=== PATIENT | male | born 1965 | race African-American/Black ===

== ENCOUNTER 2017-10-09 16:10 | Inpatient (IN) | payer OTHER ==
[2017-10-09 17:15] VITALS: BMI 35.5
--- NOTE | 2017-10-09 19:52 | HP ---
CIWA Score - CIWA Score Nausea/Vomitin-No Nausea/No Vomiting Muscle Tremors: 2 Anxiety: 3 Agitation: 2 Paroxysmal Sweats: No Perspiration Orientation: 1-Uncertain about Date (no distress) Tacttile Disturbances: 1-Very Mild Itch/Numbness Auditory Disturbances: 0-None Visual Disturbances: 0-None Headache: 0-None Present CIWA-Ar Total Score: 9 Admission ROS BHS - HPI Chief Complaint: alcohol withdrawal symptoms Allergies/Adverse Reactions: Allergies Allergy/AdvReac Type Severity Reaction Status Date / Time No Known Allergies Allergy Verified 10/09/17 18:02 History of Present Illness: 51 yo male with hx of alcohol and nicotine dependence is here seeking detox. As per patient he was evaluated last night and discharged today from [facility] for alcohol intoxication. Last April 2017, detox unable to recall the name of the last facility. PHMX: HTN, schizophrenia, anxiety, depression. Denies suicidal / homicidal. Denies hx of suicide attempts. Reports auditory and visual hallucinations when consuming a lot of alcohol. Denies hx of seizures or blackouts. Longest period of sobriety 4 months. Exam Limitations: No Limitations - Ebola screening Have you traveled outside of the country in the last 21 days: No Have you had contact with anyone from an Ebola affected area: No Have you been sick,other than usual withdrawal symptoms: No Do you have a fever: No - Review of Systems Constitutional: Chills, Changes in sleep EENT: reports: No Symptoms Reported Respiratory: reports: No Symptoms reported Cardiac: reports: No Symptoms Reported GI: reports: Poor Fluid Intake, Indigestion : reports: No Symptoms Reported Musculoskeletal: reports: No Symptoms Reported Integumentary: reports: No Symptoms Reported Neuro: reports: No Symptoms reported Endocrine: reports: Increased Thirst Hematology: reports: No Symptoms Reported Psychiatric: reports: Orientated x3, Depressed Other Systems: Reviewed and Negative Patient History - Patient Medical History Hx Anemia: No Hx Asthma: No Hx Chronic Obstructive Pulmonary Disease (COPD): No Hx Cancer: No Hx Cardiac Disorders: No Hx Congestive Heart Failure: No Hx Hypertension: Yes Hx Hypercholesterolemia: No Hx Pacemaker: No HX Cerebrovascular Accident: No Hx Seizures: No Hx Dementia: No Hx Diabetes: Yes Hx Gastrointestinal Disorders: No Hx Liver Disease: No Hx Genitourinary Disorders: No Hx Sexually Transmitted Disorders: No Hx Renal Disease (ESRD): No Hx Thyroid Disease: No Hx Human Immunodeficiency Virus (HIV): No (last tested April 2017) Hx Hepatitis C: No Hx Depression: Yes Hx Suicide Attempt: No Hx Bipolar Disorder: No Hx Schizophrenia: Yes - Patient Surgical History Past Surgical History: No Hx Neurologic Surgery: No Hx Cataract Extraction: No Hx Cardiac Surgery: No Hx Lung Surgery: No Hx Breast Surgery: No Hx Breast Biopsy: No Hx Abdominal Surgery: No Hx Appendectomy: No Hx Cholecystectomy: No Hx Genitourinary Surgery: No Hx Section: No Hx Orthopedic Surgery: No Anesthesia Reaction: No - PPD History Previous Implant?: No Documented Results: Positive w/o proof Implanted On Prior R Admission?: No PPD to be Administered?: No - Smoking Cessation Smoking history: Current every day smoker Aproximately how many cigarettes per day: 40 Hx Chewing Tobacco Use: No Initiated information on smoking cessation: Yes 'Breaking Loose' booklet given: 10/09/17 - Substance & Tx. History Hx Alcohol Use: Yes Hx Substance Use: Yes Substance Use Type: Alcohol Hx Substance Use Treatment: Yes (Last April 2017, detox unable to recall the name of the last facility) - Substances Abused Alcohol Route: Oral Frequency: Daily Amount used: 1 PINT RUM Age of first use: 16 Date of Last Use: 10/09/17 Family Disease History - Family Disease History Family Disease History: Heart Disease: Mother (HTN), Other: Father (ALCOHOLIC) Admission Physical Exam BHS - Vital Signs Vital Signs: Vital Signs - 24 hr 10/09/17 17:13 Temperature 98.7 F Pulse Rate 116 H Respiratory 18 Rate Blood Pressure 140/86 - Physical General Appearance: Yes: Disheveled, Sweating, Anxious HEENTM: Yes: EOMI, Hearing grossly Normal, Normal ENT Inspection, Normocephalic , Normal Voice, ROXIE, Pharynx Normal, Tm's normal Respiratory: Yes: Chest Non-Tender, Lungs Clear, Normal Breath Sounds, No Respiratory Distress, No Accessory Muscle Use Neck: Yes: Within Normal Limits Breast: Yes: Breast Exam Deferred Cardiology: Yes: Regular Rhythm, Regular Rate Abdominal: Yes: Normal Bowel Sounds, Non Tender, Flat, Soft Genitourinary: Yes: Within Normal Limits Back: Yes: Normal Inspection Musculoskeletal: Yes: full range of Motion, Gait Steady, Pelvis Stable Extremities: Yes: Normal Capillary Refill, Normal Inspection, Normal Range of Motion, Non-Tender Neurological: Yes: prepper II-XII NML intact, Fully Oriented, Alert, Motor Strength 5/5, Depressed Affect Integumentary: Yes: Normal Color, Warm, Diaphoresis Lymphatic: Yes: Within Normal Limits - Diagnostic (1) Alcohol dependence with withdrawal Current Visit: Yes Status: Acute Qualifiers: Complication of substance-induced condition: uncomplicated Qualified Code(s ): F10.230 - Alcohol dependence with withdrawal, uncomplicated (2) Psychiatric disorder Current Visit: Yes Status: Suspected (3) HTN (hypertension) Current Visit: Yes Status: Chronic (4) Nicotine dependence Current Visit: Yes Status: Chronic Qualifiers: Nicotine product type: cigarettes Substance use status: in withdrawal Qualified Code(s): F17.213 - Nicotine dependence, cigarettes, with withdrawal Cleared for Admission [facility] - Detox or Rehab [facility] Level of Care: Medically Supervised Detox Regimen/Protocol: Librium [facility] Breath Alcohol Content Breath Alcohol Content: 0 Urine Drug Screen - Results Drug Screen Negative: No Urine Drug Screen Results: BZO-Benzodiazepines
[2017-10-09] MEDS ORDERED: MAGNESIUM CITRATE 300 ML BOTTLE PO PRN (20:02)
[2017-10-09] MEDS ORDERED: MAGNESIUM HYDROX 2400MG/30ML ORAL SUSPENSION 30 ML CUP PO PRN (20:02)
[2017-10-09] MEDS ORDERED: chlordiazePOXIDE HCL 25 MG CAPSULE PO PRN (20:02)
[2017-10-09] MEDS ORDERED: MENTHOL/PHENOL 1 EACH UD MM PRN (20:02)
[2017-10-09] MEDS ORDERED: MAG HYDROX/AL HYDROX/SIMETH 30 ML UNIT-DOSE CUP PO PRN (20:02)
[2017-10-09] MEDS ORDERED: guaiFENesin/D-METHORPHAN HB 10 ML UNIT-DOSE CUPS PO PRN (20:02)
[2017-10-09] MEDS ORDERED: IBUPROFEN 400 MG TABLET (FP) PO PRN (20:02)
[2017-10-09] MEDS ORDERED: ACETAMINOPHEN 325 MG TABLET (FP) PO PRN (20:02)
[2017-10-09] MEDS ORDERED: P-EPHED 60MG/TRIPROLIDI 2.5MG TABLET PO PRN (20:02)
[2017-10-09] MEDS ORDERED: LOPERAMIDE HCL 2 MG CAPSULE PO PRN (20:02)
[2017-10-09] MEDS ORDERED: NICOTINE POLACRILEX 2 MG GUM BC PRN (20:13)
--- NOTE | 2017-10-09 21:51 | PN ---
BHS Progress Note Note: abnormal EKG: SINUS TACHY BPM 118 Continue detox withdrawal increase fluids repeat EKG in AM
[2017-10-09] MEDS: THIAMINE HCL 100 MG TABLET (FP) PO SCH (21:56)
[2017-10-09] MEDS: chlordiazePOXIDE HCL 25 MG CAPSULE PO SCH (22:00)
[2017-10-09 23:37] LABS: URINE APPEARANCE TURBID; URINE BILIRUBIN NEGATIVE (<2.0 mg/dL); URINE COLOR YELLOW; URINE GLUCOSE (UA) NEGATIVE (NEGATIVE); URINE KETONE NEGATIVE (NEGATIVE); URINE LEUK ESTERASE NEGATIVE (NEGATIVE); URINE NITRITE NEGATIVE (NEGATIVE); URINE UROBILINOGEN 4.0 E.U/dl mg/dL (0.2-1.0)
[2017-10-09 23:38] LABS: URINE PROTEIN 1+ (NEGATIVE)
[2017-10-09 23:47] LABS: URINE MUCUS MODERATE
[2017-10-10] MEDS: chlordiazePOXIDE HCL 25 MG CAPSULE PO SCH ×4 (05:37→22:32)
[2017-10-10] MEDS: PRENATAL VITAMINS W/ FOLIC ACID TABLET (FP) PO SCH (10:05)
[2017-10-10] MEDS: amLODIPine BESYLATE 10 MG TABLET (FP) PO SCH (10:05)
[2017-10-10] MEDS: NICOTINE 14 MG/24 HOURS TOPICAL PATCH TD SCH (10:06)
[2017-10-10 10:10] LABS: HEMATOCRIT 38.4 % (35.4-49); HEMOGLOBIN 12.8 GM/dL (11.7-16.9); MCH 26.6 pg (25.7-33.7); MCHC 33.2 g/dl (32.0-35.9); MEAN CELL VOLUME 80.1 fl (80-96); MEAN PLT VOLUME 9.4 fl (7.5-11.1); PLATELET COUNT 162 K/MM3 (134-434); RDW 16.1 % (11.9-15.9); WHITE BLOOD COUNT 6.4 K/mm3 (4.0-10.0)
[2017-10-10 10:29] LABS: CHLORIDE 104 mmol/L (98-107); SODIUM 143 mmol/L (136-145)
[2017-10-10 10:47] LABS: ALBUMIN 3.5 g/dl (3.4-5.0); ALK PHOS 94 U/L (45-117); ANION GAP 9 (8-16); BILIRUBIN,TOTAL 0.8 mg/dL (0.2-1.0); BLOOD UREA NITROGEN 15 mg/dL (7-18); CALCIUM 8.5 mg/dL (8.5-10.1); CO2 30 mmol/L (21-32); GLUCOSE,RANDOM 93 mg/dL (74-106); SGOT/AST 11 U/L (15-37); SGPT/ALT 23 U/L (12-78); TOT PROT 6.9 g/dl (6.4-8.2)
[2017-10-10 10:55] LABS: POTASSIUM 2.9 mmol/L (3.5-5.1)
--- NOTE | 2017-10-10 11:03 | CONSULT ---
[facility] Psychiatric Consult - Data Date of interview: 10/10/17 Admission source: [facility] Identifying data: Patient is a 51 year old single male, without kids, domiciled , unemployed, and supported by [facility]. This is one of multiple admissions for patient. Pt. admitted to for alcohol dependence. Substance Abuse History: Smoking Cessation. Smoking history: Current every day smoker. Aproximately how many cigarettes per day: 40. Hx Chewing Tobacco Use: No. Initiated information on smoking cessation: Yes. 'Breaking Loose' booklet given: 10/09/17. - Substance & Tx. History. Hx Alcohol Use: Yes. Hx Substance Use: Yes. Substance Use Type: Alcohol. Hx Substance Use Treatment: Yes (Last April 2017, detox unable to recall the name of the last facility). - Substances Abused. Alcohol. Route: Oral. Frequency: Daily. Amount used: 1 PINT RUM. Age of first use: 16. Date of Last Use: 10/09/17 Medical History: hypertension, diabetes Psychiatric History: Patient was diagnosed with Schizophrenia in 2005 at [facility] due to onset of auditory hallucinations. Patient reports multiple psychiatric hospitalizations, most recently last week at [facility] for auditory hallucinations. OPD is provided at [facility] outpatient clinic. Pt. currently receives Invega sustenna 234mg Monthly. States he received his montly injection on September 16 and is due for another injection on October 16. Patient denies h/o suicide attempt. Pt. currently denies suicidal and homicidal ideation. Physical/Sexual Abuse/Trauma History: Denies. Mental Status Exam - Mental Status Exam Alert and Oriented to: Time, Place, Person Cognitive Function: Good Patient Appearance: Well Groomed Mood: Euthymic Affect: Flat Patient Behavior: Cooperative Speech Pattern: Appropriate Voice Loudness: Normal Thought Process: Intact, Goal Oriented Thought Disorder: Not Present Hallucinations: Denies Suicidal Ideation: Denies Homicidal Ideation: Denies Insight/Judgement: Poor Sleep: Poorly Appetite: Fair Muscle strength/Tone: Normal Gait/Station: Normal Psychiatric Findings - Problem List ([place] 1, 2,3) (1) Alcohol dependence with withdrawal Current Visit: Yes Status: Acute Qualifiers: Complication of substance-induced condition: uncomplicated Qualified Code(s ): F10.230 - Alcohol dependence with withdrawal, uncomplicated (2) HTN (hypertension) Current Visit: Yes Status: Chronic (3) Nicotine dependence Current Visit: Yes Status: Chronic Qualifiers: Nicotine product type: cigarettes Substance use status: in withdrawal Qualified Code(s): F17.213 - Nicotine dependence, cigarettes, with withdrawal (4) Schizophrenia Current Visit: Yes Status: Chronic (5) Insomnia Current Visit: Yes Status: Acute - Initial Treatment Plan Initial Treatment Plan: Psychoeducation provided. Detoxification in progress. Pt. encouraged to accept melatonin 5mg for insomnia. Pt. is on Invega Sustenna 234mg IM. As per patient, most recent Invega Sustenna was received on September 16. Next Invega Sustenna injection is due on October 16.
[2017-10-10] MEDS ORDERED: POTASSIUM CHLORIDE TABS 20 MEQ TABLET.ER (FP) PO ONE (11:55)
--- NOTE | 2017-10-10 11:57 | PN ---
[facility] CIWA - CIWA Score Nausea/Vomitin-No Nausea/No Vomiting Muscle Tremors: 2 Anxiety: 4-Mod. Anxious/Guarded Agitation: 0-Normal Activity Paroxysmal Sweats: 3 Orientation: 0-Oriented Tacttile Disturbances: 2-Mild Itch/Numbness/Burn Auditory Disturbances: 0-None Visual Disturbances: 2-Mild Sensitivity Headache: 0-None Present CIWA-Ar Total Score: 13 S Progress Note (SOAP) Subjective: Sweating, Anxious, Tremors, Fatigue. Objective: PATIENT A & O X 3. NO ACUTE DISTRESS. ASIDE FROM HTN, PATIENT DENIES ANY KNOWN HISTORY OF CARDIOVASCULAR DISEASE OR OF PREVIOUS ECG ABNORMALITY. 10/10/17 11:58 Vital Signs Temperature 97.4 F L 10/10/17 09:14 Pulse Rate 98 H 10/10/17 09:14 Respiratory Rate 20 10/10/17 09:14 Blood Pressure 124/76 10/10/17 09:14 O2 Sat by Pulse Oximetry (%) Laboratory Tests 10/09/17 10/10/17 10/10/17 Unknown 07:00 07:00 WBC 6.4 RBC 4.80 Hgb 12.8 Hct 38.4 D MCV 80.1 MCH 26.6 MCHC 33.2 RDW 16.1 H Plt Count 162 MPV 9.4 Sodium 143 Potassium 2.9 L* D Chloride 104 Carbon Dioxide 30 Anion Gap 9 BUN 15 Creatinine 1.0 Creat Clearance w eGFR > 60 Random Glucose 93 Calcium 8.5 Total Bilirubin 0.8 AST 11 L D ALT 23 Alkaline Phosphatase 94 Total Protein 6.9 Albumin 3.5 Urine Color Yellow Urine Appearance Turbid Urine pH 5.0 Ur Specific [place] 1.028 Urine Protein 1+ H Urine Glucose (UA) Negative Urine Ketones Negative Urine Blood Negative Urine Nitrite Negative Urine Bilirubin Negative Urine Urobilinogen 4.0 e.u/dl Ur Leukocyte Esterase Negative Urine WBC (Auto) 3 Urine RBC (Auto) 8 Urine Mucus Moderate LABS NOTED. 10/10/17 11:59 Assessment: 10/10/17 11:59 WITHDRAWAL SYMPTOMS. HYPOKALEMIA. 10/10/17 11:59 Plan: CONTINUE DETOX. K-DUR, 20 MEQ PO BID. REPEAT K LEVEL ON 10/12/2017. INCREASE DAILY PO FLUID INTAKE.
--- NOTE | 2017-10-10 12:06 | PN ---
S Progress Note Note: Positive History of Diabetes noted in patient's Admission History and Physical document. However, when asked, patient denies any known history of Diabetes. Armani Riggs NP
--- NOTE | 2017-10-10 12:11 | EKG ---
Test Reason : Blood Pressure : / mmHG Vent. Rate : 118 BPM Atrial Rate : 118 BPM P-R Int : 154 ms QRS Dur : 076 ms QT Int : 310 ms P-R-T Axes : 065 -02 100 degrees QTc Int : 434 ms SINUS TACHYCARDIA WITH PREMATURE ATRIAL COMPLEXES POSSIBLE LEFT ATRIAL ENLARGEMENT LEFT VENTRICULAR HYPERTROPHY T WAVE ABNORMALITY, CONSIDER LATERAL ISCHEMIA ABNORMAL ECG NO PREVIOUS ECGS AVAILABLE Confirmed by MADAN BETANCOURT MD ([id number]) on 10/10/2017 12:10:58 PM Referred By: Confirmed By:MADAN BETANCOURT MD
--- NOTE | 2017-10-10 12:11 | EKG ---
Test Reason : Blood Pressure : / mmHG Vent. Rate : 081 BPM Atrial Rate : 081 BPM P-R Int : 162 ms QRS Dur : 088 ms QT Int : 430 ms P-R-T Axes : 063 -09 -08 degrees QTc Int : 499 ms NORMAL SINUS RHYTHM MINIMAL VOLTAGE CRITERIA FOR LVH, MAY BE NORMAL VARIANT NONSPECIFIC T WAVE ABNORMALITY PROLONGED QT ABNORMAL ECG WHEN COMPARED WITH ECG OF 09-OCT-2017 21:21, PREMATURE ATRIAL COMPLEXES ARE NO LONGER PRESENT NONSPECIFIC T WAVE ABNORMALITY NOW EVIDENT IN INFERIOR LEADS NONSPECIFIC T WAVE ABNORMALITY HAS REPLACED INVERTED T WAVES IN LATERAL LEADS Confirmed by MADAN BETANCOURT MD ([id number]) on 10/10/2017 12:11:28 PM Referred By: Confirmed By:MADAN BETANCOURT MD
[2017-10-10] MEDS: POTASSIUM CHLORIDE TABS 20 MEQ TABLET.ER (FP) PO SCH (17:13)
[2017-10-10] MEDS: THIAMINE HCL 100 MG TABLET (FP) PO SCH (22:33)
[2017-10-11] MEDS: chlordiazePOXIDE HCL 25 MG CAPSULE PO SCH ×3 (05:48→17:28)
[2017-10-11] MEDS: POTASSIUM CHLORIDE TABS 20 MEQ TABLET.ER (FP) PO SCH ×2 (10:08→17:28)
[2017-10-11] MEDS: PRENATAL VITAMINS W/ FOLIC ACID TABLET (FP) PO SCH (10:08)
[2017-10-11] MEDS: NICOTINE 14 MG/24 HOURS TOPICAL PATCH TD SCH (10:08)
[2017-10-11] MEDS: amLODIPine BESYLATE 10 MG TABLET (FP) PO SCH (10:08)
--- NOTE | 2017-10-11 12:09 | PN ---
[facility] CIWA - CIWA Score Nausea/Vomitin-No Nausea/No Vomiting Muscle Tremors: None Anxiety: 4-Mod. Anxious/Guarded Agitation: 0-Normal Activity Paroxysmal Sweats: 2 Orientation: 2-Disoriented Date<2 days Tacttile Disturbances: 2-Mild Itch/Numbness/Burn Auditory Disturbances: 0-None Visual Disturbances: 2-Mild Sensitivity Headache: 0-None Present CIWA-Ar Total Score: 12 S Progress Note (SOAP) Subjective: Interrupted Sleep, Fatigue, Constipation, Sweating. Objective: PATIENT A & O X 2 (UNCERTAIN ABOUT CURRENT DAY / DATE). NO ACUTE DISTRESS. 10/11/17 12:06 Vital Signs Temperature 97.3 F L 10/11/17 09:34 Pulse Rate 109 H 10/11/17 09:34 Respiratory Rate 18 10/11/17 09:34 Blood Pressure 122/72 10/11/17 09:34 O2 Sat by Pulse Oximetry (%) Laboratory Tests 10/09/17 10/10/17 10/10/17 Unknown 07:00 07:00 WBC 6.4 RBC 4.80 Hgb 12.8 Hct 38.4 D MCV 80.1 MCH 26.6 MCHC 33.2 RDW 16.1 H Plt Count 162 MPV 9.4 Sodium 143 Potassium 2.9 L* D Chloride 104 Carbon Dioxide 30 Anion Gap 9 BUN 15 Creatinine 1.0 Creat Clearance w eGFR > 60 Random Glucose 93 Calcium 8.5 Total Bilirubin 0.8 AST 11 L D ALT 23 Alkaline Phosphatase 94 Total Protein 6.9 Albumin 3.5 Urine Color Yellow Urine Appearance Turbid Urine pH 5.0 Ur Specific [place] 1.028 Urine Protein 1+ H Urine Glucose (UA) Negative Urine Ketones Negative Urine Blood Negative Urine Nitrite Negative Urine Bilirubin Negative Urine Urobilinogen 4.0 e.u/dl Ur Leukocyte Esterase Negative Urine WBC (Auto) 3 Urine RBC (Auto) 8 Urine Mucus Moderate RPR Titer 10/10/17 07:00 WBC RBC Hgb Hct MCV MCH MCHC RDW Plt Count MPV Sodium Potassium Chloride Carbon Dioxide Anion Gap BUN Creatinine Creat Clearance w eGFR Random Glucose Calcium Total Bilirubin AST ALT Alkaline Phosphatase Total Protein Albumin Urine Color Urine Appearance Urine pH Ur Specific [place] Urine Protein Urine Glucose (UA) Urine Ketones Urine Blood Urine Nitrite Urine Bilirubin Urine Urobilinogen Ur Leukocyte Esterase Urine WBC (Auto) Urine RBC (Auto) Urine Mucus RPR Titer Nonreactive LABS NOTED. Assessment: 10/11/17 12:08 WITHDRAWAL SYMPTOMS. Plan: CONTINUE DETOX. CONTINUE K-DUR BID. REPEAT K LEVEL TOMORROW AM. INCREASE DAILY PO FLUID INTAKE. PRN MOM FOR CONSTIPATION.
[2017-10-11] MEDS: chlordiazePOXIDE 5 MG CAPSULE PO SCH (22:08)
[2017-10-11] MEDS: MELATONIN 5 MG TABLETS PO PRN (22:08)
[2017-10-11] MEDS: THIAMINE HCL 100 MG TABLET (FP) PO SCH (22:08)
[2017-10-12] MEDS: chlordiazePOXIDE 5 MG CAPSULE PO SCH ×3 (05:02→17:21)
[2017-10-12] MEDS: PRENATAL VITAMINS W/ FOLIC ACID TABLET (FP) PO SCH (10:16)
[2017-10-12] MEDS: amLODIPine BESYLATE 10 MG TABLET (FP) PO SCH (10:16)
[2017-10-12] MEDS: POTASSIUM CHLORIDE TABS 20 MEQ TABLET.ER (FP) PO SCH ×2 (10:16→18:33)
[2017-10-12] MEDS: NICOTINE 14 MG/24 HOURS TOPICAL PATCH TD SCH (10:17)
--- NOTE | 2017-10-12 18:15 | PN ---
BHS Progress Note (SOAP) Subjective: Constipation, Anxious. Objective: PATIENT A & O X 2 (UNCERTAIN ABOUT CURRENT DAY / DATE). PATIENT OBSERVED AMBULATING ON UNIT. NO ACUTE DISTRESS. 10/12/17 18:14 Vital Signs Temperature 97.3 F L 10/12/17 13:48 Pulse Rate 68 10/12/17 13:48 Respiratory Rate 10/12/17 13:48 Blood Pressure 134/79 10/12/17 13:48 O2 Sat by Pulse Oximetry (%) Laboratory Tests 10/09/17 10/10/17 10/10/17 Unknown 07:00 07:00 WBC 6.4 RBC 4.80 Hgb 12.8 Hct 38.4 D MCV 80.1 MCH 26.6 MCHC 33.2 RDW 16.1 H Plt Count 162 MPV 9.4 Sodium 143 Potassium 2.9 L* D Chloride 104 Carbon Dioxide 30 Anion Gap 9 BUN 15 Creatinine 1.0 Creat Clearance w eGFR > 60 POC Glucometer Random Glucose 93 Calcium 8.5 Total Bilirubin 0.8 AST 11 L D ALT 23 Alkaline Phosphatase 94 Total Protein 6.9 Albumin 3.5 Urine Color Yellow Urine Appearance Turbid Urine pH 5.0 Ur Specific [place] 1.028 Urine Protein 1+ H Urine Glucose (UA) Negative Urine Ketones Negative Urine Blood Negative Urine Nitrite Negative Urine Bilirubin Negative Urine Urobilinogen 4.0 e.u/dl Ur Leukocyte Esterase Negative Urine WBC (Auto) 3 Urine RBC (Auto) 8 Urine Mucus Moderate RPR Titer 10/10/17 10/11/17 10/12/17 07:00 16:28 07:50 WBC RBC Hgb Hct MCV MCH MCHC RDW Plt Count MPV Sodium Potassium 3.7 D Chloride Carbon Dioxide Anion Gap BUN Creatinine Creat Clearance w eGFR POC Glucometer 110 Random Glucose Calcium Total Bilirubin AST ALT Alkaline Phosphatase Total Protein Albumin Urine Color Urine Appearance Urine pH Ur Specific [place] Urine Protein Urine Glucose (UA) Urine Ketones Urine Blood Urine Nitrite Urine Bilirubin Urine Urobilinogen Ur Leukocyte Esterase Urine WBC (Auto) Urine RBC (Auto) Urine Mucus RPR Titer Nonreactive LABS NOTED. Assessment: 10/12/17 18:15 WITHDRAWAL SYMPTOMS. Plan: CONTINUE DETOX. PATIENT SCHEDULED FOR D/C TOMORROW.
[2017-10-12] MEDS: THIAMINE HCL 100 MG TABLET (FP) PO SCH (22:04)
[2017-10-12] MEDS: chlordiazePOXIDE HCL 10 MG CAPSULE PO SCH (22:04)
[2017-10-12] MEDS: MELATONIN 5 MG TABLETS PO PRN (22:05)
[2017-10-13] MEDS: chlordiazePOXIDE HCL 10 MG CAPSULE PO SCH (05:14)
[2017-10-13 06:21] VITALS: BP 140/93; PULSE 79; TEMP 98.6
--- NOTE | 2017-10-13 14:10 | DS ---
[facility] Detox Discharge Summary Admission Date: 10/09/17 Discharge Date: 10/13/17 - History Present History: Alcohol Dependence Additional Comments: Patient medically stable. No suicidal / homicidal ideation. Patient to follow up with PMD upon discharge. Pertinent Past History: DMII HTN - Physical Exam Results Vital Signs: Vital Signs Temperature 98.6 F 10/13/17 06:20 Pulse Rate 79 10/13/17 06:20 Respiratory Rate 18 10/13/17 06:20 Blood Pressure 140/93 10/13/17 06:20 O2 Sat by Pulse Oximetry (%) Pertinent Admission Physical Exam Findings: Vital Signs Temperature 98.6 F 10/13/17 06:20 Pulse Rate 79 10/13/17 06:20 Respiratory Rate 18 10/13/17 06:20 Blood Pressure 140/93 10/13/17 06:20 O2 Sat by Pulse Oximetry (%) Laboratory Last Values WBC 6.4 K/mm3 (4.0-10.0) 10/10/17 07:00 RBC 4.80 M/mm3 (4.00-5.60) 10/10/17 07:00 Hgb 12.8 GM/dL (11.7-16.9) 10/10/17 07:00 Hct 38.4 % (35.4-49) D 10/10/17 07:00 MCV 80.1 fl (80-96) 10/10/17 07:00 MCH 26.6 pg (25.7-33.7) 10/10/17 07:00 MCHC 33.2 g/dl (32.0-35.9) 10/10/17 07:00 RDW 16.1 % (11.9-15.9) H 10/10/17 07:00 Plt Count 162 K/MM3 (134-434) 10/10/17 07:00 MPV 9.4 fl (7.5-11.1) 10/10/17 07:00 Sodium 143 mmol/L (136-145) 10/10/17 07:00 Potassium 3.7 mmol/L (3.5-5.1) D 10/12/17 07:50 Chloride 104 mmol/L (98-107) 10/10/17 07:00 Carbon Dioxide 30 mmol/L (21-32) 10/10/17 07:00 Anion Gap 9 (8-16) 10/10/17 07:00 BUN 15 mg/dL (7-18) 10/10/17 07:00 Creatinine 1.0 mg/dL (0.7-1.3) 10/10/17 07:00 Creat Clearance w eGFR > 60 (>60) 10/10/17 07:00 POC Glucometer 110 UNITS (80-120) 10/11/17 16:28 Random Glucose 93 mg/dL (74-106) 10/10/17 07:00 Calcium 8.5 mg/dL (8.5-10.1) 10/10/17 07:00 Total Bilirubin 0.8 mg/dL (0.2-1.0) 10/10/17 07:00 AST 11 U/L (15-37) L D 10/10/17 07:00 ALT 23 U/L (12-78) 10/10/17 07:00 Alkaline Phosphatase 94 U/L (45-117) 10/10/17 07:00 Total Protein 6.9 g/dl (6.4-8.2) 10/10/17 07:00 Albumin 3.5 g/dl (3.4-5.0) 10/10/17 07:00 Urine Color Yellow 10/09/17 Unknown Urine Appearance Turbid 10/09/17 Unknown Urine pH 5.0 (5.0-8.0) 10/09/17 Unknown Ur Specific [place] 1.028 (1.001-1.035) 10/09/17 Unknown Urine Protein 1+ (NEGATIVE) H 10/09/17 Unknown Urine Glucose (UA) Negative (NEGATIVE) 10/09/17 Unknown Urine Ketones Negative (NEGATIVE) 10/09/17 Unknown Urine Blood Negative (NEGATIVE) 10/09/17 Unknown Urine Nitrite Negative (NEGATIVE) 10/09/17 Unknown Urine Bilirubin Negative (<2.0 mg/dL) 10/09/17 Unknown Urine Urobilinogen 4.0 e.u/dl mg/dL (0.2-1.0) 10/09/17 Unknown Ur Leukocyte Esterase Negative (NEGATIVE) 10/09/17 Unknown Urine WBC (Auto) 3 /hpf (3-5) 10/09/17 Unknown Urine RBC (Auto) 8 /hpf (0-3) 10/09/17 Unknown Urine Mucus Moderate 07/11/18 Unknown RPR Titer Nonreactive (NONREACTIVE) 10/10/17 07:00 - Treatment Hospital Course: Detox Protocol Followed, Detoxed Safely, Responded well, Discharged Condition Good, Rehab Referral Accepted Patient has Accepted a Rehab Referral to: [facility] - Medication Discharge Medications: Ambulatory Orders Paliperidone Palmitate [Invega Sustenna] 234 mg IM MONTHLY 10/09/17 Amlodipine Besylate [Norvasc -] 10 mg PO DAILY #30 tablet 10/13/17 Amlodipine Besylate [Norvasc -] 10 mg PO DAILY #30 tablet 10/13/17 - Diagnosis (1) Alcohol dependence with withdrawal Status: Acute Qualifiers: Complication of substance-induced condition: uncomplicated Qualified Code(s ): F10.230 - Alcohol dependence with withdrawal, uncomplicated (2) Psychiatric disorder Status: Suspected (3) HTN (hypertension) Status: Chronic Qualifiers: Hypertension type: unspecified Qualified Code(s): I10 - Essential (primary ) hypertension (4) Nicotine dependence Status: Chronic Qualifiers: Nicotine product type: cigarettes Substance use status: in withdrawal Qualified Code(s): F17.213 - Nicotine dependence, cigarettes, with withdrawal
== END 2017-10-13 09:31 | disposition home or self-care (01) | DRG 775 ==
LOC: YASAS 16:10 → Y3N 18:28
PROVIDERS: ADMIT Surgery; ATTEND Surgery
PROC: HZ2ZZZZ Detoxification Services for Substance Abuse Treatment (ICD-10-PCS; principal; 2017-10-09)
DX: F10.230 Alcohol dependence with withdrawal, uncomplicated (principal); F17.213 Nicotine dependence, cigarettes, with withdrawal; F20.9 Schizophrenia, unspecified; F99 Mental disorder, not otherwise specified; F32.9 Major depressive disorder, single episode, unspecified; I10 Essential (primary) hypertension; E11.9 Type 2 diabetes mellitus without complications; E87.6 Hypokalemia
CPT/HCPCS: 36415; 71046-TC-FY; 80053; 81003; 81015; 82962; 84132; 85027; 86593; 93005; 93010